=== PATIENT | male | born 1950 | race Caucasian/White ===

== ENCOUNTER 2018-06-02 04:50 | Emergency (ER) | payer MEDICARE, MEDICAID ==
[2018-06-02] MEDS ORDERED: ONDANSETRON HCL INJ/PF 4 MG/2 ML SDV IV ONE ×2 (04:54→09:32)
[2018-06-02] MEDS ORDERED: PANTOPRAZOLE SODIUM 40 MG VIAL IV PRN (04:54)
[2018-06-02] MEDS ORDERED: PANTOPRAZOLE SODIUM 40 MG VIAL IV ONE (04:54)
[2018-06-02] MEDS ORDERED: NORMAL SALINE 250 ML IV PRN (05:06)
[2018-06-02 05:15] LABS: HEMATOCRIT 53.9 % (37.9-51.0); HEMOGLOBIN 17.4 g/dL (13.5-17.0); MEAN CORPUSCULAR HEMOGLOBIN 24.4 pg (27.0-33.4); MEAN CORPUSCULAR HGB CONC 32.2 g/dL (32.0-36.0); MEAN CORPUSCULAR VOLUME 76 fl (80-97); PLATELET COUNT 400 10^3/uL (150-450); RED CELL DISTRIBUTION WIDTH 18.5 % (11.5-14.0)
[2018-06-02 05:24] LABS: WHITE BLOOD COUNT 30.8 10^3/uL (4.0-10.5)
[2018-06-02 05:31] LABS: ABSOLUTE LYMPHOCYTES# (MANUAL) 1.5 10^3/uL (0.5-4.7); ABSOLUTE MONOCYTES # (MANUAL) 1.5 10^3/uL (0.1-1.4); ABSOLUTE NEUTROPHILS# (MANUAL) 27.7 10^3/uL (1.7-8.2); BASOPHILS % (MANUAL) 0 % (0-2); EOSINOPHILS % (MANUAL) 0 % (0-6); INTERNATIONAL RATION (INR) 1.45; LYMPHOCYTES % (MANUAL) 5 % (13-45); MONOCYTES % (MANUAL) 5 % (3-13); PROTHROMBIN TIME 18.4 SEC (11.4-15.4); SEGMENTED NEUTROPHILS % (MAN) 90 % (42-78); TOTAL CELLS COUNTED 100
[2018-06-02 05:32] LABS: ANISOCYTOSIS 1+; PARTIAL THROMBOPLASTIN TIME 35.6 SEC (23.5-35.8); PLATELET COMMENT ADEQUATE; POLYCHROMASIA 1+
[2018-06-02 06:25] LABS: ALANINE AMINOTRANSFERASE 46 U/L (21-72); ALBUMIN 3.7 g/dL (3.5-5.0); ALKALINE PHOSPHATASE 107 U/L (38-126); ANION GAP 13 (5-19); ASPARTATE AMINO TRANSFERASE 41 U/L (17-59); BILIRUBIN,DIRECT 0.5 mg/dL (0.0-0.4); BILIRUBIN,TOTAL 0.8 mg/dL (0.2-1.3); BLOOD UREA NITROGEN 42 mg/dL (7-20); CALCIUM 9.2 mg/dL (8.4-10.2); CARBON DIOXIDE 28 mmol/L (22-30); CHLORIDE 106 mmol/L (98-107); GLUCOSE 134 mg/dL (75-110); LIPASE 33.5 U/L (23-300); POTASSIUM 3.2 mmol/L (3.6-5.0); SODIUM 146.8 mmol/L (137-145); TOTAL PROTEIN 6.4 g/dL (6.3-8.2)
[2018-06-02] MEDS ORDERED: NORMAL SALINE 500 ML IV ONE (06:27)
[2018-06-02] MEDS ORDERED: CEFTRIAXONE INJ 1000 MG VIAL IV ONE (06:40)
[2018-06-02] MEDS ORDERED: NORMAL SALINE 1000 ML 1,000 ML IV ONE (06:57)
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
--- NOTE | 2018-06-02 07:47 | RADIOLOGY REPORT (SQ) ---
Clinical History : hematemsis , Exam : Portable AP view of the chest 06/02/2018 4:54 AM CDT Comparisons : none Findings : The lungs are low in volume which accentuates the pulmonary vasculature. ] The There is otherwise no focal consolidation or pleural effusion.. The heart is normal in size. The mediastinal contours are normal in appearance. The patient is status post sternotomy and CABG. Chest arch calcification The thoracic spine is age appropriate. The shoulders are unremarkable. Limited evaluation of the upper abdomen demonstrates no gross abnormalities. Impression: Low lung volumes, otherwise no acute cardiopulmonary disease.
[2018-06-02 11:13] LABS: VENOUS BLOOD BASE EXCESS 0.4 mmol/L; VENOUS BLOOD HCO3 27.6 mmol/L (20-32); VENOUS BLOOD PCO2 54.7 mmHg (35-63); VENOUS BLOOD PH 7.32 (7.30-7.42)
[2018-06-02 13:09] LABS: PATH REVIEW PATHOLOGIST REVIEWED
[2018-06-02 13:42] VITALS: BP 88/64
--- NOTE | 2018-06-03 15:20 | EKG REPORT ---
SEVERITY:- ABNORMAL ECG - SINUS TACHYCARDIA PROBABLE LEFT ATRIAL ABNORMALITY LEFT ANTERIOR FASCICULAR BLOCK LVH WITH SECONDARY REPOLARIZATION ABNORMALITY : Confirmed by: Dea Hunt MD 03-Jun-2018 15:19:48
--- NOTE | 2018-06-03 15:20 | EKG REPORT ---
SEVERITY:- ABNORMAL ECG - SINUS TACHYCARDIA PROBABLE LEFT ATRIAL ABNORMALITY LEFT ANTERIOR FASCICULAR BLOCK CONSIDER ANTEROSEPTAL INFARCT BORDERLINE PROLONGED QT INTERVAL : Confirmed by: Dea Hunt MD 03-Jun-2018 15:19:43
== END 2018-06-02 13:40 | disposition short-term general hospital (02) ==
LOC: ER 04:50
DX: K92.2 Gastrointestinal hemorrhage, unspecified (principal); Z66 Do not resuscitate; F03.90 Unspecified dementia, unspecified severity, without behavioral disturbance, psychotic disturbance, mood disturbance, and anxiety; I10 Essential (primary) hypertension; R09.89 Other specified symptoms and signs involving the circulatory and respiratory systems; R06.82 Tachypnea, not elsewhere classified; D72.829 Elevated white blood cell count, unspecified; Z65.5 Exposure to disaster, war and other hostilities; Z95.2 Presence of prosthetic heart valve; Z79.01 Long term (current) use of anticoagulants; Z89.511 Acquired absence of right leg below knee; Z93.1 Gastrostomy status
CPT/HCPCS: 93005; 96376; 99291; 99292; 96375; 96365; 96366; 96368; 86900; 86901; 36415; 87040; 86850; 82140; 83690; 85025; 85610; 85730; 80053; 84484; 86920; 82803; 83605; 71045; 93010; C9113; J0696; J2405; S0164